=== PATIENT | male | born 1990 | race Caucasian/White ===

== ENCOUNTER 2021-02-21 12:56 | Emergency (ER) | payer BC ==
[~2021-02-21] VITALS: Ht 185.4 cm; Wt 77.1 kg
[~2021-02-21 12:56] MED LIST: ADVAIR 250-501 EACH; ALBUTEROL; COMBIVENT INH14.7 GM; ERYTHROMYCIN; PREDNISONE
== END 2021-02-21 13:54 | disposition home or self-care (01) ==
LOC: ER 13:00
DX: R56.9 Unspecified convulsions (principal)
CPT/HCPCS: 99282